=== PATIENT | female | born 1950 | race Caucasian/White ===

== ENCOUNTER 2020-08-02 13:53 | Outpatient (CLI) | payer MEDICARE ==
--- NOTE | 2020-08-02 14:51 | BD ---
DEXA BONE MINERAL DENSITY STUDY: HISTORY: Osteoporosis screening. COMPARISON: None. FINDINGS: Lumbar Spine: BMD (g/cm2) L1 0.727 T-Score: -2.4 -0.6 L2 0.785 T-Score: -2.2 -0.2 L3 0.786 T-Score: -2.7 -0.6 L4 0.711 T-Score: -3.2 -1.0 L1-L4 0.751 T-Score: -2.7 -0.6 Femoral Neck: 0.583 T-Score: -2.4 -0.7 Total Femur: 0.832 T-Score: -0.9 0.5 WHO CLASSIFICATION: Osteoporosis. Impression: Osteoporosis with elevated fracture risk. POS: HOME
== END 2020-08-02 13:54 | disposition home or self-care (01) ==
LOC: BICMAMMO 13:53
PROVIDERS: ATTEND Family Medicine
DX: Z13.820 Encounter for screening for osteoporosis (principal); N95.0 Postmenopausal bleeding; M81.0 Age-related osteoporosis without current pathological fracture
CPT/HCPCS: 77080

== ENCOUNTER 2020-12-02 15:51 | Outpatient (CLI) | payer MEDICARE | END 2020-12-02 15:52 | disposition home or self-care (01) | LOC: BICRAD 15:51 | PROVIDERS: ATTEND Family Medicine | DX: M54.5 Low back pain (principal); M47.816 Spondylosis without myelopathy or radiculopathy, lumbar region; M81.0 Age-related osteoporosis without current pathological fracture | CPT/HCPCS: 72100 ==

== ENCOUNTER 2020-12-17 09:28 | Outpatient (CLI) | payer MEDICARE | END 2020-12-17 09:29 | disposition home or self-care (01) | LOC: TBSIIMAG 09:28 | PROVIDERS: ATTEND Family Medicine | DX: M47.26 Other spondylosis with radiculopathy, lumbar region (principal); S32.020D Wedge compression fracture of second lumbar vertebra, subsequent encounter for fracture with routine healing | CPT/HCPCS: 72148 ==

== ENCOUNTER 2022-05-09 14:31 | Outpatient (CLI) | payer MEDICARE | END 2022-05-09 14:32 | disposition home or self-care (01) | LOC: BICMAMMO 14:31 | PROVIDERS: ATTEND Family Medicine | DX: Z13.820 Encounter for screening for osteoporosis (principal); N95.9 Unspecified menopausal and perimenopausal disorder; M85.89 Other specified disorders of bone density and structure, multiple sites; Z87.310 Personal history of (healed) osteoporosis fracture | CPT/HCPCS: 77080 ==

== ENCOUNTER 2024-04-10 13:23 | Outpatient (CLI) | payer MEDICARE | END 2024-04-10 13:24 | disposition home or self-care (01) | LOC: BICRAD 13:23 | PROVIDERS: ATTEND Family Medicine | DX: M25.562 Pain in left knee (principal); G89.29 Other chronic pain; E11.65 Type 2 diabetes mellitus with hyperglycemia; M17.12 Unilateral primary osteoarthritis, left knee; M25.462 Effusion, left knee ==

== ENCOUNTER 2024-05-16 12:46 | Outpatient (CLI) | payer MEDICARE | END 2024-05-16 12:47 | disposition home or self-care (01) | LOC: SCSMRI 12:46 | PROVIDERS: ATTEND Orthopaedic Surgery | DX: M71.22 Synovial cyst of popliteal space [Baker], left knee (principal); S83.242A Other tear of medial meniscus, current injury, left knee, initial encounter; M25.462 Effusion, left knee; M22.42 Chondromalacia patellae, left knee | CPT/HCPCS: 36415; 82565 ==